=== PATIENT | female | born 1990 | race Caucasian/White ===

== ENCOUNTER 2020-02-23 19:41 | Emergency (ER) | payer OTHER ==
[~2020-02-23] VITALS: Ht 162.6 cm; Wt 83.2 kg
[~2020-02-23 19:41] MED LIST: CYCL5TAB PO
[2020-02-23 19:45] VITALS: BP 137/93
--- NOTE | 2020-02-23 20:00 | PHYS DOC ---
Past History Past Medical History: Anxiety, Depression (KENDRICK HO APRN) Past Surgical History: Tonsillectomy (KENDRICK HO APRN) Alcohol Use: Rarely Drug Use: None (KENDRICK HO APRN) Adult General Chief Complaint Chief Complaint: DENTAL PROBLEM [facility] HPI Patient is a 29 year old female presents emergency department with complaints of dental pain that started 2 hours ago patient complains of rear molar pains reporting that both teeth are broken and have been broken for years, patient states she has not seen a dentist because she does not have dental insurance, patient states that her new job at [employer] will give her dental insurance within 6 months and then she will see a dentist. Patient denies any other symptoms, denies fever or chills nasal congestion cough shortness of breath, denies throat pain, chest pains, abdominal pain, nausea, vomiting, diarrhea. Patient denies any skin rashes, denies headaches, denies focal weaknesses, denies sensory changes. Patient denies any swelling of her glands. Patient denies any COVID-19 symptoms, patient does not wish to be tested for the COVID- 19 virus today. (KENDRICK HO APRN) Review of Systems Review of Systems Constitutional: Denies fever or chills Eyes: Denies change in visual acuity, redness, or eye pain HENT: Denies nasal congestion or sore throat, complains of dental pain. Respiratory: Denies cough or shortness of breath Cardiovascular: No additional information not addressed in HPI GI: Denies abdominal pain, nausea, vomiting, constipation or diarrhea [] : Denies dysuria or hematuria Musculoskeletal: Denies back pain or joint pain Integument: Denies rash or skin lesions Neurologic: Denies headache, focal weakness or sensory changes Endocrine: Denies polyuria or polydipsia All other systems were reviewed and found to be within normal limits, except as documented in this note. (KENDRICK HO APRN) Current Medications Current Medications Patient denies taking prescription medications at this time. (KENDRICK HO APRN) Allergies Allergies Allergies Coded Allergies Type Severity Reaction Last Updated Verified No Known Drug Allergies 02/23/20 No (KENDRICK HO APRN) Physical Exam Physical Exam Constitutional: Well developed, well nourished, no acute distress, non-toxic appearance. HENT: Normocephalic, atraumatic, bilateral external ears normal, oropharynx moist, no oral exudates, nose normal. Patient has poor dentition, multiple teeth broken and decayed, patient's teeth left side most rear upper and lower molar that she states hurt are both broken, no abscess noted, visual condition c onsistent with pulpitis. There is no gum swelling. Eyes: PERRLA, EOMI, conjunctiva normal, no discharge. Neck: Normal range of motion, no tenderness, supple, no stridor. Cardiovascular:Heart rate regular rhythm, no murmur Lungs & Thorax: Bilateral breath sounds clear to auscultation Abdomen: Bowel sounds normal, soft, no tenderness, no masses, no pulsatile masses. Skin: Warm, dry, no erythema, no rash. Back: No tenderness, no CVA tenderness. Extremities: No tenderness, no cyanosis, no clubbing, ROM intact, no edema. Neurologic: Alert and oriented X 3, normal motor function, normal sensory function, no focal deficits noted. Psychologic: Affect normal, judgement normal, mood normal. (KENDRICK HO APRN) Current Patient Data Vital Signs Vital Signs Date Time Temp Pulse Resp B/P (MAP) Pulse Ox O2 Delivery O2 Flow Rate FiO2 02/23/20 19:45 97.9 86 18 137/93 (108) 100 Room Air (KENDRICK HO APRN) EKG EKG [] (KENDRICK HO APRN) Radiology/Procedures Radiology/Procedures [] (KENDRICK HO APRN) Heart Score Risk Factors: Risk Factors: DM, Current or recent (<one month) smoker, HTN, HLP, family history of CAD, obesity. Risk Scores: Risk Factors: DM, Current or recent (<one month) smoker, HTN, HLP, family history of CAD, obesity. (KENDRICK HO APRN) Course & Med Decision Making Course & Med Decision Making Pertinent Labs and Imaging studies reviewed. (See chart for details) 29-year-old female presents emergency department complaining of dental pain, visual exam revealed poor dentition, multiple broken teeth, gingivitis, there was no swelling of the gums, no abscesses, no draining purulence, patient's teeth that she complained hurt the most were both broken, exam consistent with pulpitis, discussed with patient physical findings, will start empiric antibiotic Augmentin, also will give 2 Vicodin's in the ER today, discharged home with a prescription for Augmentin and ibuprofen for pain. Patient is to follow-up with dentist soon, dental referrals given, patient gave verbal understanding of discharge home instructions, return to ER concerns, had no further questions or concerns, patient discharged home without incident (KENDRICK HO APRN) Dragon Disclaimer Dragon Disclaimer This electronic medical record was generated, in whole or in part, using a voice recognition dictation system. (KENDRICK HO APRN) Departure Departure: Impression: Primary Impression: Acute pulpitis Additional Impressions: Dentalgia Dental caries Disposition: 01 DC HOME SELF CARE/HOMELESS Condition: GOOD Referrals: JONATHAN ESTRADA MD (PCP) Patient Instructions: Dental Caries Additional Instructions: Take antibiotics as prescribed, follow-up with dentist soon, return to emergency department for worsening symptoms or further concerns. EMERGENCY DEPARTMENT GENERAL DISCHARGE INSTRUCTIONS Thank you for coming to [facility] (ED) today and trusting us with you care. We trust that you had a positivie experience in our Emergency Department. If you wish to speak to the department management, you may call the director at . YOUR FOLLOW UP INSTRUCTIONS ARE FOLLOWS: 1. Do you have a private Doctor? If you do not have a private doctor, please ask for a resource list of physicians or clinics that may be able to assist you with follow up care. 2. The Emergency Physician has interpreted your x-rays. The X-Ray specialist will also review them. If there is a change in the findings, you will be notified in 48 hours when at all possible. 3. A lab test or culture has been done, your results will be reviewed and you will be notified if you need a change in treatment. ADDITIONAL INSTRUCTIONS AND INFORMATION: 1. Your care today has been supervised by a physician who is specially trained in emergency care. Many problems require more than one evaluation for a complete diagnosis and treatment. We recommend that you schedule your follow up appointment as recommended to ensure complete treatment of you illness or injury. If you are unable to obtain follow up care and continue to have a problem, or if your condition worsens, we recommend that you return to the ED. 2. We are not able to safely determine your condition over the phone nor are we able to give sound medical advice over the phone. For these safety reasons, if you call for medical advice we will ask you to come to the ED for further evaluation. 3. If you have any questions regarding these discharge instructions please call the ED at [phone]. SAFETY INFORMATION: In the interest of safety, wellness, and injury prevention; we encourage you to wear your sealbelt, if you smoke; quite smoking, and we encourage family to use a protective helmet for bicycling and other sporting events that present an increased risk for head injury. IF YOUR SYMPTOMS WORSEN OR NEW SYMPTOMS DEVELOP, OR YOU HAVE CONCERNS ABOUT YOUR CONDITION; OR IF YOUR CONDITION WORSENS WHILE YOU ARE WAITING FOR YOUR FOLLOW UP APPOINTMENT; EITHER CONTACT YOUR PRIMARY CARE DOCTOR, THE PHYSICIAN WHOSE NAME AND NUMBER YOU WERE GIVEN, OR RETURN TO THE ED IMMEDIATELY. Scripts Ibuprofen (Ibu) 600 Mg Tablet 1 TAB PO Q6HRS for DENTAL PAIN for 7 Days, #28 TAB 0 Refills Prov: KENDRICK HO APRN 02/23/20 Amoxicillin/Potassium Clav (AUGMENTIN 875-125 TABLET) 1 Each Tablet 1 TAB PO BID for DENTAL CARIES for 10 Days, #20 TAB 0 Refills Prov: KENDRICK HO APRN 02/23/20 Attending Signature Attending Signature I have reviewed the PA/SOCK LINING STITCHER's note and plan of care. I was available for consultation as needed during the patient's visit in the emergency department. I agree with the clinical impression, plan, and disposition. (KENDRICK CAMACHO DO) Problem Qualifiers KENDRICK HO APRN Feb 23, 2020 20:00 KENDRICK CAMACHO DO Feb 24, 2020 00:51
[2020-02-23] MEDS ORDERED: AMOXICILLIN/K CLAV 875/125MG TABLET. PO ONE (20:15)
[2020-02-23] MEDS ORDERED: HYDROcodone/APAP 5/325MG 1 TAB TABLET PO ONE (20:15)
[2020-02-23] MEDS ORDERED: AMOX1TAB61 PO (20:30)
[2020-02-23] MEDS ORDERED: IBUP-571 PO (20:30)
== END 2020-02-23 20:35 | disposition home or self-care (01) ==
LOC: ER 19:41
DX: K02.9 Dental caries, unspecified (principal); K04.01 Reversible pulpitis; F41.9 Anxiety disorder, unspecified; F32.9 Major depressive disorder, single episode, unspecified
CPT/HCPCS: 99283